=== PATIENT | male | born 1960 | race Caucasian/White ===

== ENCOUNTER → 2020-06-02 | Outpatient (CLI) | payer OTHER | LOC: EMI 10:11 | DX: M54.12 Radiculopathy, cervical region (principal); R20.2 Paresthesia of skin; R19.00 Intra-abdominal and pelvic swelling, mass and lump, unspecified site | CPT/HCPCS: 72148 ==

== ENCOUNTER → 2020-06-10 | Outpatient (CLI) | payer OTHER | LOC: EXRD 07:43 | DX: R19.00 Intra-abdominal and pelvic swelling, mass and lump, unspecified site (principal) | CPT/HCPCS: 76700 ==

== ENCOUNTER → 2021-12-19 | Outpatient (CLI) | payer OTHER | LOC: RAD 12:13 | DX: M79.89 Other specified soft tissue disorders (principal); Z87.81 Personal history of (healed) traumatic fracture | CPT/HCPCS: 73620 ==